=== PATIENT | male | born 1950 | race Two or more races ===

== ENCOUNTER 2019-01-27 12:02 | Inpatient (IN) | payer OTHER, MEDICARE ==
[2019-01-27] MEDS ORDERED: oxyCODONE TAB* 5 MG TAB PO PRN ×2 (12:20→14:04)
[2019-01-27] MEDS ORDERED: Morphine 4 MG/ML VIAL (1 ml) 4 MG/ML VIAL IV PRN (12:20)
[2019-01-27] MEDS ORDERED: Magnesium Hydroxide LIQ* 30 ML UDC PO PRN (12:20)
[2019-01-27] MEDS ORDERED: Docusate CAP* 100 MG PO PRN (12:20)
[2019-01-27] MEDS ORDERED: diPHENhydraMINE PO* 25 MG PO PRN (12:20)
[2019-01-27] MEDS ORDERED: Ondansetron INJ* 2 MG/ML VIAL IV PRN (12:20)
[2019-01-27] MEDS ORDERED: Ondansetron ODT TAB* 4 MG PO PRN (12:20)
[2019-01-27] MEDS ORDERED: diPHENhydraMINE IV* 50 MG/ML 1 ml VIAL (BENADRYL) IV PRN (12:20)
[2019-01-27] MEDS ORDERED: traMADol TAB* 50 MG PO PRN (12:20)
[2019-01-27] MEDS ORDERED: Zosyn per Pharmacy* NOTE FOLLOW UP SCH (13:00)
--- OUTSIDE RECORDS SUMMARY | 2019-01-27 13:30 | XMS REPORT | Continuity of Care Document ---
:1950 External Reference #:[id number] Author Name Celeste Amato Care Team Providers Name Role Phone Arash Hollingsworth MD Primary Care Physician Unavailable Payers Date Identification Numbers Payment Provider Subscriber Policy Number: [id number] [employer] Number: [id number] [address] PayID: [id number] [place] [address] Problems Active Problems Provider Date Cellulitis of right lower limb Fermín Issa MD Onset: 01/27/2019 Acute osteomyelitis of ankle and/or foot Fermín Issa MD Onset: 01/27/2019 Gluteal tendinitis Estefany Kraft M.D. Onset: 02/02/2016 Localized, primary osteoarthritis of the pelvic Estefany Kraft M.D. 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 ETOH Use Occasionally consumes alcohol Tobacco Use Start: Unknown End: Patient is a former quit when he was 34 Unknown smoker yrs old - up to 1 ppd x 16 yrs Smoking Status Reviewed: 01/27/19 Patient is a former quit when he was 34 smoker yrs old - up to 1 ppd x 16 yrs Exercise Exercises regularly Type/Frequency Allergies, Adverse Reactions, Alerts Active Allergies Reaction Severity Comments Date Lisinopril swelling of airways 01/03/2019 Chlorthalidone 01/27/2019 Medications Active Medications SIG Qnty Indications Ordering Provider Date Triamterene/Hydrochloro 1 by mouth every Unknown thiazide day 37.5-25mg Capsules Potassium Chloride Becky 1 by mouth every Unknown ER day 20Meq Tablets ER Atorvastatin Calcium 1 by mouth every Unknown 40mg day Tablets History Medications Amoxicillin/Clavulanate 1 tab by 30tabs L03.115 Snicere Cobos 01/03/2019 - Potassium mouth two Monika Concepcion 01/26/2019 500-125mg Tablets times per day Naproxen 1 tablet 60tabs M70.62 Estefany Kraft 12/22/2015 - 500mg Tablets with food by Monika 01/02/2019 mouth twice a day for two weeks Medications Administered in Office Medication SIG Qnty Indications Ordering Provider Date Depomedrol 40MG Estefany Kraft M.D. 12/22/2015 Injection Vital Signs Date Vital Result Comment 01/27/2019 11:16am Height 75 inches 6'3" Weight 220.00 lb Heart Rate 72 /min BP Systolic 108 mmHg BP Diastolic 70 mmHg Respiratory Rate 16 /min Body Temperature 98.2 F Pain Level 2 BMI (Body Mass Index) 27.5 kg/m2 01/03/2019 11:20am Height 75 inches 6'3" Weight 227.00 lb Heart Rate 72 /min BP Systolic Sitting 148 mmHg BP Diastolic Sitting 86 mmHg Respiratory Rate 14 /min Body Temperature 98.5 F BMI (Body Mass Index) 28.4 kg/m2 02/02/2016 10:18am Height 75 inches 6'3" Weight 222.00 lb Respiratory Rate 16 /min Pain Level 0 BMI (Body Mass Index) 27.7 kg/m2 01/05/2016 11:04am Height 75 inches 6'3" Weight 222.00 lb Pain Level 1 BMI (Body Mass Index) 27.7 kg/m2 12/22/2015 9:47am Height 75 inches 6'3" Weight 222.00 lb Heart Rate 58 /min BP Systolic 122 mmHg BP Diastolic 78 mmHg Pain Level 7 highest is 7 BMI (Body Mass Index) 27.7 kg/m2 Results Test Date Facility Test Result H/L Range Note Laboratory test 01/03/2019 [facility] Tissue Culture SEE RESULT [address] & [address] BELOW [place], [place] [address] [phone] 1 SEE RESULT BELOW Name: RODYFLACO Robert : [address]: Bradley Maxwell MD Acct: [id number] Unit: [id number] AGE: 68 Location: WOUND Re01/03/19 SEX: M Status: REG REF SPEC: [id number] STEVEN: 01/03/[address]: Bradley Maxwell MD REQ: [id number] RECD: 01/03/19 STATUS: TOR HYMAN DR: Arash Hollingsworth MD _ SOURCE: WOUND SPDESC:RIGHT ORDERED: Tissue Cult/GS COMMENTS: RIGHT FOOT WOUND Procedure Result Reported Site Tissue Gram Stain Final 01/03/19- 1450 ML 2+ Epithelial Cells 2+ Neutrophils 2+ Gram Positive Cocci Tissue Culture Final 01/07/19- 0913 ML Organism 1 STAPHYLOCOCCUS AUREUS Quantity 3+ Organism 2 PROTEUS VULGARIS Quantity 2+ Organism 3 PEPTOSTREPTOCOCCUS ANAEROBIUS Quantity 2+ Organism 4 ENTEROCOCCUS FAECALIS Quantity 1+ Anaerobic sensitivities are not routinely performed. Positive isolates will be saved for one week. Please call the Microbiology Laboratory if susceptibility testing is needed. E. FAECALIS: Organism nonviable for further testing. 1. STAPHYLOCOCCUS AUREUS M.I.C. RX --------- ------ Penicillin >=0.5 R Clindamycin <=0.25 S Erythromycin >=8 R Gentamicin <=0.5 S CONTINUED ON NEXT PAGE DEPARTMENT OF PATHOLOGY, [address] [place] [address] Addison Lennon M.D. Director [facility] # [id number] Patient: FLACO FINE [id number] (Continued) Specimen: [id number] Collected: 01/03/19 Received: 01/03/19 (Continued) Procedure Result Reported Site Tissue Culture Final (continued) 01/07/19912 1. STAPHYLOCOCCUS AUREUS (continued) M.I.C. RX --------- ------ Linezolid 2 S Oxacillin 0.5 S * Quinupristin/Dalfopristin 0.5 S Rifampin <=0.5 S Tetracycline >=16 R Trimethoprim/Sulfamethoxazole <=10 S Vancomycin 1 S Imipenem-Deduced S * Ampicillin/Sulbactam-Deduced S Cefazolin-Deduced S 2. PROTEUS VULGARIS M.I.C. RX --------- ------ Ampicillin >=32 R Cefazolin >=64 R Cefepime <=1 S Ceftriaxone <=1 S Ciprofloxacin <=0.25 S Gentamicin <=1 S Levofloxacin <=0.12 S Meropenem <=0.25 S Tetracycline R Pipercillin/Tazobactam <=4 S Trimethoprim/Sulfamethoxazole <=20 S Amoxicillin/Clavulanic Acid 8 S Aztreonam <=1 S * These antibiotics are not available in the [facility] Formulary Contact the Microbiology Department for any additional antibiotic reporting. CONTINUED ON NEXT PAGE DEPARTMENT OF PATHOLOGY, [address] [place] [address] Addison Lennon M.D. Director [facility] # [id number] Patient: FLACO FINE [id number] (Continued) Specimen: [id number] Collected: 01/03/19 Received: 01/03/19-1324 (Continued) Procedure Result Reported Site Tissue Culture Final (continued) Contact the Microbiology Department for any additional antibiotic reporting. * [facility] . END OF REPORT DEPARTMENT OF PATHOLOGY, [address] [place] [address] Addison Lennon M.D. 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 M.D. hip M16.12 Unilateral primary osteoarthritis, left hip M76.02 Gluteal tendinitis, left hip Office Visit 01/05/2016 11:00a Orthopedic Services Estefany Kraft, M25.552 Pain in left Of C.M.A. M.D. hip M16.12 Unilateral primary osteoarthritis, left hip M70.62 Trochanteric bursitis, left hip Office Visit 12/22/2015 9:30a Orthopedic Estefany Karft, M70.62 Trochanteric Services Of M.D. bursitis, left hip C.M.A. M25.552 Pain in left hip M16.12 Unilateral primary osteoarthritis, left hip Plan of Treatment 01/27/2019 - Fermín Issa MDL03.115 Cellulitis of right lower limbM86.171 Other acute osteomyelitis, right ankle and footFollow up:Follow Up: being admitted to hospital
--- OUTSIDE RECORDS SUMMARY | 2019-01-27 13:30 | XMS REPORT | Continuity of Care Document ---
:1950 External Reference #:[id number] Author Name Kira Whitaker Care Team Providers Name Role Phone Arash Hollingsworth MD Primary Care Physician Unavailable Payers Date Identification Numbers Payment Provider Subscriber Policy Number: [id number] [employer] Number: [id number] [address] PayID: [id number] [place] [address] Problems Active Problems Provider Date Gluteal tendinitis Estefany Kraft M.D. Onset: 02/02/2016 Localized, primary osteoarthritis of the pelvic Estefany Kraft M.D. 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 01/03/2019 e Potassium two times per Monika Concepcion 500-125mg day Tablets Triamterene/Hydrochlor 1 by mouth Unknown othiazide every day 37.5-25mg Capsules Potassium Chloride 1 by mouth Unknown Becky ER every day 20Meq Tablets ER Atorvastatin Calcium 1 by mouth Unknown 40mg every day Tablets History Medications Naproxen 1 tablet with 60tabs M70.62 Estefany Kraft, 12/22/2015 - 500mg food by mouth M.DLatrice 01/02/2019 Tablets twice a day for two weeks Medications Administered in Office Medication SIG Qnty Indications Ordering Provider Date Depomedrol 40MG Estefany Kraft M.D. 12/22/2015 Injection Vital Signs Date Vital Result Comment 01/03/2019 11:20am Height 75 inches 6'3" Weight [...] Result H/L Range Note Laboratory test 01/03/2019 [facility] Tissue Culture SEE RESULT [address] [place] [address] [phone] 1 SEE RESULT BELOW Name: JUANITA FINE : [address]: Bradley Maxwell MD Acct: [id number] Unit: [id number] AGE: 68 Location: WOUND Re01/03/19 SEX: M Status: REG REF SPEC: [id number] STEVEN: 01/03/19-[address] [facility] [address]: Bradley Maxwell MD REQ: [id number] RECD: 01/03/19 STATUS: RES [facility] DR: Arash Hollingsworth MD _ SOURCE: WOUND SPDESC:RIGHT ORDERED: Tissue Cult/GS COMMENTS: RIGHT FOOT WOUND Procedure Result Reported Site Tissue Gram Stain Final 01/03/19- 1450 ML 2+ Epithelial Cells 2+ Neutrophils 2+ Gram Positive Cocci Tissue Culture Preliminary 01/05/19- 1117 ML Organism 1 STAPHYLOCOCCUS AUREUS Quantity 3+ Organism 2 PROTEUS VULGARIS Quantity 2+ 1. STAPHYLOCOCCUS AUREUS M.I.C. RX --------- ------ Penicillin >=0.5 R Clindamycin <=0.25 S Erythromycin >=8 R Gentamicin <=0.5 S Linezolid 2 S Oxacillin 0.5 S * Quinupristin/Dalfopristin 0.5 S Rifampin <=0.5 S Tetracycline >=16 R Trimethoprim/Sulfamethoxazole <=10 S Vancomycin 1 S Imipenem-Deduced S * Ampicillin/Sulbactam-Deduced S Cefazolin-Deduced S CONTINUED ON NEXT PAGE DEPARTMENT OF PATHOLOGY, [address] [place] [address] Addison Lennon M.D. Director [facility] # [id number] Patient: JUANITA FINE [id number] (Continued) Specimen: [id number] Collected: 01/03/19 Received: 01/03/19-1324 (Continued) Procedure Result Reported Site Tissue Culture Preliminary (continued) 01/05/19- 1117 2. PROTEUS VULGARIS M.I.C. RX --------- ------ Ampicillin >=32 R Cefazolin >=64 R Cefepime <=1 S Ceftriaxone <=1 S Ciprofloxacin <=0.25 S Gentamicin <=1 S Levofloxacin <=0.12 S Meropenem <=0.25 S Tetracycline R Pipercillin/Tazobactam <=4 S Trimethoprim/Sulfamethoxazole <=20 S Amoxicillin/Clavulanic Acid 8 S Aztreonam <=1 S * These antibiotics are not available in the [facility] Formulary Contact the Microbiology Department for any additional antibiotic reporting. Contact the Microbiology Department for any additional antibiotic reporting. * [facility] - Main Lab . END OF REPORT DEPARTMENT OF PATHOLOGY, [address] [place] [address] Addison Lennon M.D. Director [facility] # [id number] Procedures Date Code Description Status 01/03/2019 80860 Debridement Skin,& sq Tissue Completed 12/22/2015 77802 Inject/Drain Joint/Bursa Major W/O US Completed Encounters Type Date Location Provider Dx Diagnosis Office Visit 02/02/2016 Orthopedic Estefany Kraft, M25.552 Pain in left hip 10:00a Services Of Molly Frank M16.12 Unilateral primary osteoarthritis, left hip M76.02 Gluteal tendinitis, left hip Office Visit 01/05/2016 11:00a Orthopedic Services Estefany Swapnil, M25.552 Pain in left Of C.M.A. Monika hip M16.12 Unilateral primary osteoarthritis, left hip M70.62 Trochanteric bursitis, left hip Office Visit 12/22/2015 9:30a Orthopedic Estefany Kraft, M70.62 Trochanteric Services Of Monika bursitis, left hip C.M.A. 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
[2019-01-27] MEDS ORDERED: ZOSYN 3.375 GM x ONE DOSE over 30 miuntes IVPB ×2 (14:00)
[2019-01-27 14:31] LABS: ABS Eosinophils 0.3 10^3/ul (0-0.6); ABS Monocytes 0.6 10^3/ul (0-0.8); ABS Neutrophils 5.5 10^3/ul (1.5-7.7); Eosinophil % 3.6 %; Hematocrit 41 % (42-52); Hemoglobin 13.7 g/dL (14.0-18.0); Lymphocyte % 13.2 %; Mean Corpuscular HGB Conc 34 g/dL (31-36); Mean Corpuscular Hemoglobin 28 pg (27-31); Mean Corpuscular Volume 84 fL (80-94); Mean Platelet Volume 6.4 fL (7.4-10.4); Platelet Count 216 10^3/uL (150-450); Red Blood Count 4.84 10^6 /uL (4.18-5.48); Red Cell Distribution Width 14 % (10-15); White Blood Count 7.4 10^3/uL (3.5-10.8)
[2019-01-27 14:37] LABS: INR 1.04 (0.82-1.09)
[2019-01-27 14:43] LABS: BUN/Creatinine Ratio 15.1 (8-20); Calcium 9.3 mg/dL (8.6-10.3); EGFR African American 97.5 (>60); EGFR Non-African American 80.6 (>60); Potassium 3.9 mmol/L (3.5-5.0)
[2019-01-27] MEDS: Heparin VIAL(*) 5000 UNITS/ML VIAL (FIVE THOUSAND) SUBCUT SCH ×2 (15:10→22:41)
[2019-01-27 17:55] LABS: C Reactive Protein 29.64 mg/L (<8.01)
--- NOTE | 2019-01-27 18:51 | CONS ---
CONSULTATION REPORT: DATE OF CONSULT: 01/27/19 PRIMARY CARE PROVIDER: Dr. Arash Hollingsworth. PROVIDER REQUESTING CONSULTATION: JORGE LUIS Linn CONSULTING SERVICE: Infectious Disease. PROVIDER OF CARE: Brendon Saucedo NP ATTENDING PHYSICIAN: Dr. Sincere Chapa.* (DICTATED BY BRENDON SAUCEDO NP) REASON FOR CONSULT: Right second toe infection. IMPRESSION: 1. Right second toe osteomyelitis. The patient has had a wound to the plantar aspect of his right foot over the second metatarsal for approximately 3-1/2 months. In the past, this wound was cultured back on 01/03/19, at which time the wound grew Staph aureus, Proteus vulgaris, Peptostreptococcus anaerobius, and Enterococcus faecalis. He underwent an MRI of the right foot showing right second toe cellulitis and osteomyelitis. He had a CRP last on 12/23/18 that was 47.87. Orthopedics plans to take the patient to surgery on 01/30/19. 2. Hypertension. PLAN/RECOMMENDATIONS: Recommend starting Zosyn. At this time, the wound does not have any drainage, but if it develops drainage in an area that is able to have a wound culture, we could obtain a would culture to better guide our antibiotic management. I recommend adding a CRP to today's labs. We will continue to follow along with the patient. Further recommendations will be based off of findings during the patient's surgery and his clinical course. HISTORY OF PRESENT ILLNESS: Mr. Warren is a 68-year-old male with past medical history significant for sleep apnea, hypertension, and umbilical hernia, who approximately 3-1/2 months ago developed a blister on the plantar aspect of his right foot near the second metatarsals. His foot was x-rayed by his primary care provider and he was found to have a second and third toe dislocation with no fracture or foreign body. He was started on Keflex. When his foot did not improve, he was transitioned to Augmentin with some minimal improvement. He was then referred to Infectious Disease for consultation. On 01/14/19, he had an MRI of his right foot showing second MTP dislocation, superficial and deep cellulitis with extensive superficial and deep soft tissue edema, some enhancement about the forefoot consistent with cellulitis most marked surrounding the second toe where there were three less than 1 mL volume microabscesses identified. He was also found to have osteomyelitis involving the distal metaphysis of the head of the second metatarsal and throughout the proximal phalanx with associated bone marrow edema and enhancement consistent with osteomyelitis. Severe hallux valgus deformity and polyarthritic osteoarthritis. He states he completed a 10- day course of Augmentin approximately 1 week ago. He states that then this weekend the foot flared back up with right ankle edema, redness in his right second toe, with swelling of the right second toe. He states that for approximately 1 month he has had intermittent right ankle and foot edema. He was seen by Dr. Issa in the office today and was referred directly to the hospital for a right foot osteomyelitis. The patient denies any fevers, chills, joint pain, muscle pain, rash, diarrhea, constipation, urinary symptoms, recent travel. PAST MEDICAL HISTORY: 1. Sleep apnea. 2. Hypertension. 3. Umbilical hernia. PAST SURGICAL HISTORY: 1. Status post cholecystectomy. 2. Status post repair of deviated septum. 3. Status post tonsillectomy. 4. Status post removal of a lump from his left leg as a child. MEDICATIONS: Home medications include: 1. Potassium chloride 20 mEq by mouth twice daily. 2. Dyazide 25/37.5 mg 1 tablet by mouth daily. 3. Claritin 10 mg by mouth daily. 4. Atorvastatin 40 mg by mouth daily. Hospital medications: 1. Acetaminophen 975 mg by mouth every 8 hours as needed for fever or pain. 2. Atorvastatin 40 mg by mouth daily. 3. Cetirizine 10 mg by mouth daily. 4. Benadryl 25 mg IV or p.o. every 6 hours as needed for itching. 5. Colace 100 mg by mouth twice daily as needed for constipation. 6. Heparin sodium 5000 units subcutaneous every 8 hours. 7. Milk of magnesia 30 mL by mouth twice daily as needed for constipation. 8. Morphine sulfate 2 mg IV every 4 hours as needed for pain. 9. Zofran 4 mg by mouth or IV every 6 hours as needed for nausea. 10. Oxycodone 5 to 10 mg by mouth every 4 hours as needed for pain. 11. Zosyn 3.375 g IV q.8 hours. 12. Potassium chloride 20 mEq by mouth twice daily. 13. Tramadol 50 mg by mouth every 6 hours as needed for pebr-cn-aeaijgpu pain. 14. Dyazide 1 capsule by mouth daily. ALLERGIES: 1. CHLORTHALIDONE. 2. LISINOPRIL. FAMILY HISTORY: Denies family history of recurrent or resistant infections or tuberculosis. Denies family history of coronary artery disease or diabetes. Mother with a history of bone marrow cancer. Father with a history of blood clots. SOCIAL HISTORY: He drinks wine daily with dinner. He is a former smoker. He quit smoking 30 years ago. Prior to that, he had a 20-year 2-mxpb-y-day smoking history. He denies recreational drug use. REVIEW OF SYSTEMS: I performed a 10-point review of systems. All the pertinent positives and negatives are mentioned in the history of present illness. The remaining review of systems are negative. PHYSICAL EXAM: Vital Signs: Temperature 98.9, heart rate 63, respiratory rate 16, O2 sat 93% on room air, blood pressure 145/82. General Appearance: Alert, pleasant, appears to be in no acute distress. Head: Normocephalic, atraumatic. EENT: Pupils are equal and reactive to light. Extraocular movements are intact. Mucous membranes are moist. Neck: Supple. No lymphadenopathy. Neurological: Alert and oriented x4. Cranial nerves II through XII are grossly intact. Cardiovascular: Regular rate and rhythm. S1 and S2 are crisp. No murmurs, rubs, or gallops heard. Respiratory: No accessory muscle use. The lungs are clear to auscultation bilaterally. Abdomen : Bowel sounds present. Abdomen is soft, nontender, nondistended. Extremities : There is mild right foot and ankle edema. DP and PT pulses are 2+ and symmetric. Musculoskeletal: No clubbing or cyanosis noted. The patient exhibits good strength in all extremities. Psychological: Calm and cooperative. Skin: There is erythema to the right forefoot, significant swelling to the right second toe with macerated skin surrounding the toe, especially at the base of the toe. Additionally, there is an ulcer to the plantar aspect of the right foot with what appears to be surrounding callus overlying the second metatarsal. DIAGNOSTIC STUDIES/LAB DATA: Sodium 142, potassium 3.9, chloride 105, CO2 of 31 , BUN 14, creatinine 0.93, glucose 102. White blood cell count 7.4, hemoglobin 13.7, hematocrit 41, platelet count 216. Please see impression and recommendations outlined above. Thank you for asking us to see Mr. Warren in consultation. The case has been reviewed with my attending, Dr. Sincere Chapa, who agrees with the plan of care. Reviewed by BRENDON SAUCEDO, PATRICE-Nehemiah 01/28/19 0821 [id number]/[facility] #: [id number] MTDD
[2019-01-27] MEDS: ZOSYN 3.375 GM Q8H per EXTENDED INFUSION IVPB SCH ×2 (20:08)
[2019-01-27] MEDS: Potassium Chlor TAB* 20 MEQ TAB.ER PO SCH (20:12)
[2019-01-28] MEDS: ZOSYN 3.375 GM Q8H per EXTENDED INFUSION IVPB SCH ×6 (03:51→20:09)
[2019-01-28] MEDS: Heparin VIAL(*) 5000 UNITS/ML VIAL (FIVE THOUSAND) SUBCUT SCH ×3 (05:55→21:45)
[2019-01-28] MEDS: Potassium Chlor TAB* 20 MEQ TAB.ER PO SCH ×2 (09:23→20:11)
[2019-01-28] MEDS: Triamterene/HCTZ 37.5-25 MG* CAP PO SCH (09:24)
[2019-01-28] MEDS: Atorvastatin* 40 MG TAB PO SCH (09:24)
[2019-01-28] MEDS: Cetirizine* 10 MG TAB PO SCH (09:24)
--- NOTE | 2019-01-28 10:22 | PN ---
Progress Note - Progress Note Date of Service: 01/28/19 SOAP: Subjective: []Saw and examined Flaco at bedside today. His right foot remains nonpainful, promotes that it has never been painful. Denies feeling of fever, chills, CP, SOB, dizziness or nausea. Has tongue swelling on the right side. Denies difficulty swallowing, difficulty breathing, rash or itching. Objective: []General: Appears well, NAD Right side of tongue is swollen, no other airway swelling observed. No rash of abdomen or extremities. RLE: Dressing removed, foul odor. Right forefoot erythematous and edematous, nontender. 2nd Toe also nontender, very erythematous and edematous, macerated skin worst at the base and in the web spaces, no purulence, cap refill less than two seconds distally. 1cm plantar ulcer over the 2nd metatarsal without expressible drainage. DP2+, sensation is decreased from midfoot distally. Assessment: []R foot infection Plan: []Heel WB Heparin 5000 u subq q8hr Benadryl for tongue swelling, Patient knows to report any worsening or new sx. Zosyn, will culture wound if any drainage. Plan for OR Vital Signs Temp 98.9 F 01/28/19 07:37 Pulse 59 01/28/19 07:37 Resp 16 01/28/19 09:23 BP 140/75 01/28/19 07:37 Pulse Ox 94 01/28/19 07:37 Intake & Output 01/27/19 01/28/19 01/28/19 18:59 06:59 18:59 Intake Total 755 360 Output Total 50 575 275 Balance -50 180 85 Weight 220 lb Intake: IV Fluids 255 ABX - PIPERACILLIN 205 NS (0.9%) 50 Oral 500 360 Output: Urine 50 575 275 Other: # Bowel Movements 0 Laboratory Last Values WBC 7.4 10^3/uL (3.5-10.8) 01/27/19 14:15 RBC 4.84 10^6 /uL (4.18-5.48) 01/27/19 14:15 Hgb 13.7 g/dL (14.0-18.0) L 01/27/19 14:15 Hct 41 % (42-52) L 01/27/19 14:15 MCV 84 fL (80-94) 01/27/19 14:15 MCH 28 pg (27-31) 01/27/19 14:15 MCHC 34 g/dL (31-36) 01/27/19 14:15 RDW 14 % (10-15) 01/27/19 14:15 Plt Count 216 10^3/uL (150-450) 01/27/19 14:15 MPV 6.4 fL (7.4-10.4) L 01/27/19 14:15 Neut % (Auto) 74.2 % 01/27/19 14:15 Lymph % (Auto) 13.2 % 01/27/19 14:15 Canadian % (Auto) 8.4 % 01/27/19 14:15 Eos % (Auto) 3.6 % 01/27/19 14:15 Baso % (Auto) 0.6 % 01/27/19 14:15 Absolute Neuts (auto) 5.5 10^3/ul (1.5-7.7) 01/27/19 14:15 Absolute Lymphs (auto) 1.0 10^3/ul (1.0-4.8) 01/27/19 14:15 Absolute Monos (auto) 0.6 10^3/ul (0-0.8) 01/27/19 14:15 Absolute Eos (auto) 0.3 10^3/ul (0-0.6) 01/27/19 14:15 Absolute Basos (auto) 0.0 10^3/ul (0-0.2) 01/27/19 14:15 Absolute Nucleated RBC 0.0 10^3/ul 01/27/19 14:15 Nucleated RBC % 0.0 01/27/19 14:15 INR (Anticoag Therapy) 1.04 (0.82-1.09) 01/27/19 14:15 Sodium 142 mmol/L (135-145) 01/27/19 14:15 Potassium 3.9 mmol/L (3.5-5.0) 01/27/19 14:15 Chloride 105 mmol/L (101-111) 01/27/19 14:15 Carbon Dioxide 31 mmol/L (22-32) 01/27/19 14:15 Anion Gap 6 mmol/L (2-11) 01/27/19 14:15 BUN 14 mg/dL (6-24) 01/27/19 14:15 Creatinine 0.93 mg/dL (0.67-1.17) 01/27/19 14:15 Est GFR ( Amer) 97.5 (>60) 01/27/19 14:15 Est GFR (Non-Af Amer) 80.6 (>60) 01/27/19 14:15 BUN/Creatinine Ratio 15.1 (8-20) 01/27/19 14:15 Glucose 102 mg/dL (70-100) H 01/27/19 14:15 Calcium 9.3 mg/dL (8.6-10.3) 01/27/19 14:15 C-Reactive Protein 29.64 mg/L (<8.01) H 01/27/19 14:15
--- NOTE | 2019-01-28 16:19 | CONSULT ---
Consult Consult: Date of service: 01/28/2019 Reason for consultation: Nonhealing right plantar foot wound and the patient with noncompressible infrapopliteal arteries. Consulting service: Foot and ankle surgery (Shakira KANG) (Focused) HPI: Mr. Warren is a 68-year-old male who approximately 3-1/2 months ago developed a blister on the plantar aspect of his right foot near the second metatarsals. His foot was x-rayed by his primary care provider and he was found to have a second and third toe dislocation with no fracture or foreign body. He was started on Keflex. When his foot did not improve, he was transitioned to Augmentin with some minimal improvement. He was then referred to Infectious Disease for consultation. On 01/14/19, he had an MRI of his right foot showing second MTP dislocation, superficial and deep cellulitis with extensive superficial and deep soft tissue edema, some enhancement about the forefoot consistent with cellulitis most marked surrounding the second toe where there were three less than 1 mL volume microabscesses identified. He was also found to have osteomyelitis involving the distal metaphysis of the head of the second metatarsal and throughout the proximal phalanx with associated bone marrow edema and enhancement consistent with osteomyelitis. He completed a 10- day course of Augmentin approximately 1 week ago. This weekend the foot flared back up with right ankle edema, redness in his right second toe, with swelling of the right second toe. For approximately 1 month he has had intermittent right ankle and foot edema. He was seen by Dr. Issa in the office today and was referred directly to the hospital for a right foot osteomyelitis. The patient denies any fevers, chills, joint pain, muscle pain, rash, diarrhea, constipation, urinary symptoms, recent travel. Prior to this infection he denies any symptoms characteristic of claudication or rest pain. He has never had a prolonged non-healing wound like this before either. PAST MEDICAL HISTORY: 1. Sleep apnea. 2. Hypertension. 3. Umbilical hernia. PAST SURGICAL HISTORY: 1. Status post cholecystectomy. 2. Status post repair of deviated septum. 3. Status post tonsillectomy. 4. Status post removal of a lump from his left leg as a child Hospital medications: 1. Acetaminophen 975 mg by mouth every 8 hours as needed for fever or pain. 2. Atorvastatin 40 mg by mouth daily. 3. Cetirizine 10 mg by mouth daily. 4. Benadryl 25 mg IV or p.o. every 6 hours as needed for itching. 5. Colace 100 mg by mouth twice daily as needed for constipation. 6. Heparin sodium 5000 units subcutaneous every 8 hours. 7. Milk of magnesia 30 mL by mouth twice daily as needed for constipation. 8. Morphine sulfate 2 mg IV every 4 hours as needed for pain. 9. Zofran 4 mg by mouth or IV every 6 hours as needed for nausea. 10. Oxycodone 5 to 10 mg by mouth every 4 hours as needed for pain. 11. Zosyn 3.375 g IV q.8 hours. 12. Potassium chloride 20 mEq by mouth twice daily. 13. Tramadol 50 mg by mouth every 6 hours as needed for efgx-rh-yhaeauwe pain. 14. Dyazide 1 capsule by mouth daily. ALLERGIES: 1. CHLORTHALIDONE. 2. LISINOPRIL. FAMILY HISTORY: Denies family history of recurrent or resistant infections or tuberculosis. Denies family history of coronary artery disease or diabetes. Mother with a history of bone marrow cancer. Father with a history of blood clots requiring lifetime Coumadin therapy and varicose veins. SOCIAL HISTORY: He drinks wine daily with dinner. He is a former smoker. He quit smoking 30 years ago. Prior to that, he had a 20-year 2-jovh-p-day smoking history. He denies recreational drug use. REVIEW OF SYSTEMS: I performed a 10-point review of systems. All the pertinent positives and negatives are mentioned in the history of present illness. The remaining review of systems are negative. 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 Moderate right lower extremity arterial disease based on JALEESA. 2. Normal left lower extremity JALEESA. RELEVANT LABS: Laboratory Tests 01/27/19 01/27/19 01/27/19 14:15 14:15 14:15 WBC 7.4 RBC 4.84 Hgb 13.7 L Hct 41 L INR (Anticoag Therapy) 1.04 BUN 14 Creatinine 0.93 Est GFR ( Amer) 97.5 Est GFR (Non-Af Amer) 80.6 Summary: 68-year-old man with a chronic right forefoot wound and osteomyelitis with evidence of arterial insufficiency on recent JALEESA as indicated by the below normal right digit JALEESA of 0.66. On physical examination however he has readily palpable pedal pulses and conveys no history of arerial insufficiency. It seems unlikely angiography with potential revascularization is indicicted. Recommendation: 1.RLE arterial patency will be objectively confirmed with arterial duplex sonography. 2. Continue abx therapy and surgical care per foot & ankle surgery.
[2019-01-28] MEDS: Acetaminophen TAB* 325 MG PO PRN (20:18)
[2019-01-29] MEDS: ZOSYN 3.375 GM Q8H per EXTENDED INFUSION IVPB SCH ×6 (04:01→20:17)
[2019-01-29] MEDS: Heparin VIAL(*) 5000 UNITS/ML VIAL (FIVE THOUSAND) SUBCUT SCH ×3 (05:31→22:18)
[2019-01-29] MEDS: Potassium Chlor TAB* 20 MEQ TAB.ER PO SCH ×2 (08:42→20:17)
[2019-01-29] MEDS: Atorvastatin* 40 MG TAB PO SCH (08:42)
[2019-01-29] MEDS: Cetirizine* 10 MG TAB PO SCH (08:43)
[2019-01-29] MEDS: Triamterene/HCTZ 37.5-25 MG* CAP PO SCH (08:43)
--- NOTE | 2019-01-29 10:15 | PN ---
Progress Note - Progress Note Date of Service: 01/29/19 SOAP: Subjective: CC: Right foot infection HPI: Mr. Warren is a 68 yo male with PMH significant for sleep apnea, HTN and umbilical hernia. Presented to the hospital for right 2nd toe osteomyelitis. Denies fever, chills, nausea, vomiting, and diarrhea. Denies pain in the right foot. Reports right sided tongue swelling yesterday, that resolved with Benadryl , states this has been happening at home for the past few months is taking OTC allergy medication for it and is unsure of the cause. Objective: Vital Signs - 8 hr 01/29/19 01/29/19 03:24 07:21 Temperature 97.9 F 98.1 F Pulse Rate 53 55 Respiratory 16 12 Rate Blood Pressure 115/62 133/84 (mmHg) O2 Sat by Pulse 93 95 Oximetry Physical Exam: General: NAD, sitting up in bed Neurological: Alert and Oriented x4 HEENT: Moist MM, no thrush Cardiovascular: Heart rate regular, no murmur Respiratory: Lung sounds clear Abdominal: Bowel sounds present; ABD soft, non tender and non distended Skin: No rash. Right 2nd toe continues to have significant swelling and a mild foul smell. There is no erythema present. Laboratory Last Values WBC 7.4 10^3/uL (3.5-10.8) 01/27/19 14:15 RBC 4.84 10^6 /uL (4.18-5.48) 01/27/19 14:15 Hgb 13.7 g/dL (14.0-18.0) L 01/27/19 14:15 Hct 41 % (42-52) L 01/27/19 14:15 MCV 84 fL (80-94) 01/27/19 14:15 MCH 28 pg (27-31) 01/27/19 14:15 MCHC 34 g/dL (31-36) 01/27/19 14:15 RDW 14 % (10-15) 01/27/19 14:15 Plt Count 216 10^3/uL (150-450) 01/27/19 14:15 MPV 6.4 fL (7.4-10.4) L 01/27/19 14:15 Neut % (Auto) 74.2 % 01/27/19 14:15 Lymph % (Auto) 13.2 % 01/27/19 14:15 Mcdowell % (Auto) 8.4 % 01/27/19 14:15 Eos % (Auto) 3.6 % 01/27/19 14:15 Baso % (Auto) 0.6 % 01/27/19 14:15 Absolute Neuts (auto) 5.5 10^3/ul (1.5-7.7) 01/27/19 14:15 Absolute Lymphs (auto) 1.0 10^3/ul (1.0-4.8) 01/27/19 14:15 Absolute Monos (auto) 0.6 10^3/ul (0-0.8) 01/27/19 14:15 Absolute Eos (auto) 0.3 10^3/ul (0-0.6) 01/27/19 14:15 Absolute Basos (auto) 0.0 10^3/ul (0-0.2) 01/27/19 14:15 Absolute Nucleated RBC 0.0 10^3/ul 01/27/19 14:15 Nucleated RBC % 0.0 01/27/19 14:15 INR (Anticoag Therapy) 1.04 (0.82-1.09) 01/27/19 14:15 Sodium 142 mmol/L (135-145) 01/27/19 14:15 Potassium 3.9 mmol/L (3.5-5.0) 01/27/19 14:15 Chloride 105 mmol/L (101-111) 01/27/19 14:15 Carbon Dioxide 31 mmol/L (22-32) 01/27/19 14:15 Anion Gap 6 mmol/L (2-11) 01/27/19 14:15 BUN 14 mg/dL (6-24) 01/27/19 14:15 Creatinine 0.93 mg/dL (0.67-1.17) 01/27/19 14:15 Est GFR ( Amer) 97.5 (>60) 01/27/19 14:15 Est GFR (Non-Af Amer) 80.6 (>60) 01/27/19 14:15 BUN/Creatinine Ratio 15.1 (8-20) 01/27/19 14:15 Glucose 102 mg/dL (70-100) H 01/27/19 14:15 Calcium 9.3 mg/dL (8.6-10.3) 01/27/19 14:15 C-Reactive Protein 29.64 mg/L (<8.01) H 01/27/19 14:15 Assessment: 1. Right second toe chronic osteomyelitis. Plan for surgery tomorrow for an amputation. Afebile and no leukocytosis on labs checked at time of admission. CRP was elevated at admission, 29.64. Plan: Continue zosyn. Further recommendations based on the findings and clinical course after surgery.
--- NOTE | 2019-01-29 10:43 | PN ---
Progress Note - Progress Note Date of Service: 01/29/19 SOAP: Subjective: []Patient was seen and examined at bedside today. Denies right foot pain, fever , chills, CP, SOB, dizziness or nausea. No complaints today, tongue swelling has resolved. Reports this same tongue swelling has occurred 4x in the past 6 weeks and his PCP is aware, he has tried an OTC allergy medication which has not seemed to help. Vascular consult completed yesterday, unlikely that this patient requires revascularization though arterial duplex sonography ordered to confirm patency of vessels. Patient reports no history of complications with anesthesia, no history of MS or chest pain, no history of stroke or TIA, no history of CHF, no history of blood clot, not on insulin, and preop creatinine is less than 2. Objective: []General: Appears well, NAD No lip, tongue or throat swelling observed. RLE: Dressing changed, foul odor. No longer erythematous, edema has reduced of the forefoot though 2nd toe remains very edematous. 2nd toe macerated skin remains though has dried compared to yesterday, no purulence. 1cm plantar ulcer over the 2nd metatarsal without expressible drainage. Sensation is decreased from midfoot distally, there is no pain with palpation. Cap refill less than two seconds distally including distal 2nd toe, DP2+. Assessment: []R foot infection Plan: []Heel WB Keep gauze between 1st and 2nd web spaces, over any wounds and wrap with kerlix and hadley. Heparin 5000 u subq q8hr until midnight then hold for OR tomorrow. SCDs Benadryl PRN should any tongue swelling occur. F/U with PCP outpatient to continue this workup Continue Zosyn, will culture wound if any drainage. Plan for OR . NPO and hold heparin at midnight Vital Signs Temp 98.1 F 01/29/19 07:21 Pulse 55 01/29/19 07:21 Resp 12 01/29/19 07:21 BP 133/84 01/29/19 07:21 Pulse Ox 95 01/29/19 07:21 Intake & Output 01/28/19 01/29/19 01/29/19 18:59 06:59 18:59 Intake Total 720 994 Output Total 275 1050 Balance 445 -56 Intake: IV Fluids 244 ABX - PIPERACILLIN 209 NS (0.9%) 35 Oral 720 750 Output: Urine 275 1050 Other: Estimated Void Medium # Bowel Movements 0 # Voids 2 1
[2019-01-29] MEDS ORDERED: traMADol TAB* 50 MG PO PRN (12:36)
[2019-01-30] MEDS: ZOSYN 3.375 GM Q8H per EXTENDED INFUSION IVPB SCH ×2 (04:12)
[2019-01-30] MEDS: ZOSYN 3.375 GM Q6H IVPB SCH ×6 (04:13→16:49)
[2019-01-30 05:54] LABS: ABS Eosinophils 0.3 10^3/ul (0-0.6); ABS Lymphocytes 1.1 10^3/ul (1.0-4.8); ABS Monocytes 0.4 10^3/ul (0-0.8); ABS Neutrophils 4.4 10^3/ul (1.5-7.7); Eosinophil % 4.2 %; Hematocrit 43 % (42-52); Hemoglobin 14.8 g/dL (14.0-18.0); Lymphocyte % 17.5 %; Mean Corpuscular HGB Conc 34 g/dL (31-36); Mean Corpuscular Hemoglobin 29 pg (27-31); Mean Corpuscular Volume 84 fL (80-94); Mean Platelet Volume 6.2 fL (7.4-10.4); Platelet Count 223 10^3/uL (150-450); Red Blood Count 5.15 10^6 /uL (4.18-5.48); Red Cell Distribution Width 14 % (10-15); White Blood Count 6.2 10^3/uL (3.5-10.8)
[2019-01-30 05:59] LABS: INR 1.03 (0.82-1.09)
[2019-01-30] MEDS ORDERED: Buffered Lidocaine 1% SYRIN* 1 ML/SYRINGE INTRADERM ONE (06:00)
[2019-01-30] MEDS: Lactated Ringers 1000 ML Bag* 1,000 ML IV SCH ×2 (06:01→15:29)
[2019-01-30 06:04] LABS: Calcium 9.5 mg/dL (8.6-10.3); Potassium 3.6 mmol/L (3.5-5.0)
[2019-01-30 06:09] LABS: BUN/Creatinine Ratio 14.9 (8-20); EGFR African American 88.6 (>60); EGFR Non-African American 73.2 (>60)
[2019-01-30] MEDS: Cetirizine* 10 MG TAB PO SCH (08:27)
[2019-01-30] MEDS: Triamterene/HCTZ 37.5-25 MG* CAP PO SCH (08:27)
[2019-01-30] MEDS: Atorvastatin* 40 MG TAB PO SCH (08:27)
[2019-01-30] MEDS: Potassium Chlor TAB* 20 MEQ TAB.ER PO SCH ×2 (08:28→20:21)
[2019-01-30] MEDS ORDERED: Midazolam* 1 MG/ML 2 ML VIAL (2 MG) ONE (11:54)
[2019-01-30] MEDS ORDERED: fentaNYL* 50 MCG/ML 2 ML VIAL (100 MCG VIAL) ONE (11:54)
[2019-01-30] MEDS ORDERED: Naloxone* 0.4 MG/ML 1 ML VIAL IV PRN (13:13)
[2019-01-30] MEDS ORDERED: fentaNYL* 50 MCG/ML 2 ML VIAL (100 MCG VIAL) IV PRN (13:13)
[2019-01-30] MEDS ORDERED: Ketorolac INJ* 30 MG/ML 1 ML VIAL IV PRN (13:13)
[2019-01-30] MEDS ORDERED: Propofol* 10 MG/ML 20 ML BTL ONE (13:27)
[2019-01-30] MEDS ORDERED: Lidocaine 2% PF * 5 ML VIAL ONE (13:27)
[2019-01-30] MEDS ORDERED: Metoclopramide IV* 5 MG/ML 2 ML VIAL ONE (13:28)
[2019-01-30] MEDS ORDERED: Ondansetron INJ* 2 MG/ML VIAL ONE (14:05)
--- NOTE | 2019-01-30 15:10 | OP ---
Operative Report - Blank - Operative Report Date of Operation: 01/30/19 Note: PATIENT: Flaco Warren DATE OF : 1950 DATE OF SURGERY: 01/30/2019 SURGEON: Fermín Issa MD CENTRAL OFFICE INSTALLER: JORGE LUIS Linder, whos assistance was necessary for positioning, retraction, help with instrumentation, and closure. ANESTHESIOLOGIST: Dr. Atkins PREOPERATIVE DIAGNOSIS: Right foot infection with 2nd toe and metatarsal osteomyelitis. Right gastrocnemius contracture. POSTOPERATIVE DIAGNOSIS: Right foot infection with 2nd toe and metatarsal osteomyelitis. Right gastrocnemius contracture. OPERATION: 1. Right gastrocnemius recession 2. Right foot irrigation and debridement 3. Right 2nd toe amputation 4. Excision of right distal 2nd metatarsal ANESTHESIA: General IMPLANTS: None TOURNIQUET TIME: Less than 1 hour with a well-padded thigh tourniquet at 250mmHg SPECIMENS: Toe and metatarsal to pathology. Culture swabs to microbiology. ESTIMATED BLOOD LOSS: 50cc COMPLICATIONS: none STATUS: Stable from the operating room to the recovery room and then back to the hospital floor. INDICATIONS FOR PROCEDURE: Flaco has peripheral neuropathy and developed a worsening foot infection. Both operative and non-operative treatment alternatives were reviewed. Further, the nature and risks of surgery were reviewed in careful detail. Our discussions regarding the risks of surgery included, but were not limited to, persistent or worsening infection, wound problems, nerve injury, neuroma, RSD, persistent symptoms, blood clot, need for further surgery or amputation, failure of the surgery, and even the remote chance of catastrophic complication. DESCRIPTION OF PROCEDURE: The patient was seen in the preoperative holding unit and informed written consent was obtained. The appropriate extremity was marked. The patient was then brought to the operating room and carefully positioned on the operating room table. Anesthesia was induced. All bony prominences were padded with great care. A well-padded thigh tourniquet was placed. A chlorhexidine based pre- scrub was performed followed by a chloraprep prep and drape in standard sterile fashion. A surgical safety pause was then conducted in which we confirmed the appropriate patient, extremity, planned procedure, availability of equipment, indication and administration of prophylactic antibiotics, and DVT prophylaxis in the form of a compression boot on the non-surgical extremity. I began with an Esmarch exsanguination, the limb, excluding the foot, and inflated the tourniquet. I then made an approximately 3-cm incision at the posteromedial calf. I carried the dissection through the soft tissue and divided the crural fascia longitudinally. I then exposed the fascia of the gastrocnemius muscle. Great care was taken to protect the sural nerve throughout this procedure. I cleared all adhesions from the posterior aspect of the gastrocnemius fascia and then transected this in its entirety from medially to laterally. I then identified the plantaris tendon, which was also tight medially. This was transected. These procedures had the effect of improving the ankle dorsiflexion to approximately 10 degrees. I then again confirmed that the sural nerve was in continuity. We irrigated copiously. We then used #3-0 Monocryl for the subdermal layer and antelmo for the skin. I then turned my attention to the foot. I made a longitudinal incision overlying the second metatarsal and a circular incision around the second toe. I then used sharp dissection to amputate the second toe at the level of the second MTP joint. This was sent to pathology. I then dissected proximally to expose the second metatarsal. A small oscillating saw blade was used to osteotomize the metatarsal about a third of the way down the shaft. The distal aspect of metatarsal was then skeletonized and excised. This was also sent to pathology. Deep culture swabs were then taken, and sent to microbiology. I then proceeded with a thorough irrigation and debridement of the wound and the foot. All infected and nonviable tissue was sharply excised with a 15 blade scalpel. This included the skin, subcutaneous, muscular, periosteal, and bone layers. After all grossly infected tissue was excised, the wound was copiously irrigated with sterile saline and cystoscopy tubing. I then closed the proximal aspect of the incision in a layered fashion, utilizing #1 PDS, 3-0 Monocryl, and 3-0 nylon. At the distal aspect of the incision, this could not be closed primarily, so the wound was packed with a Betadine wet to dry dressing. The wound measures 2 cm in length by 2 cm in width by 2 cm in depth. A sterile dressing was then applied. The patient was then awakened from anesthesia and transferred to the recovery room in stable condition. There were no complications. All needle and sponge counts were correct at the end of the case. ATTESTATION: I attest I was present and scrubbed and performed the critical portions of the procedure myself. POSTOPERATIVE PLAN: He will continue on antibiotics as guided by the infectious disease service. He will get daily Betadine wet to dry wound packing. He'll be readmitted to the hospital floor.
[2019-01-30] MEDS ORDERED: NS 0.9% 1000 ML** 1,000 ML IV SCH (16:45)
[2019-01-30] MEDS ORDERED: ZOSYN 3.375 GM IVPB SCH ×2 (23:00)
[2019-01-31] MEDS: Acetaminophen TAB* 325 MG PO PRN (07:47)
[2019-01-31] MEDS: ZOSYN 3.375 GM IVPB SCH ×6 (07:47→23:15)
[2019-01-31] MEDS: Atorvastatin* 40 MG TAB PO SCH (08:38)
[2019-01-31] MEDS: Cetirizine* 10 MG TAB PO SCH (08:38)
[2019-01-31] MEDS: Potassium Chlor TAB* 20 MEQ TAB.ER PO SCH ×2 (08:38→21:19)
[2019-01-31] MEDS: Triamterene/HCTZ 37.5-25 MG* CAP PO SCH (08:38)
[2019-01-31] MEDS: Heparin VIAL(*) 5000 UNITS/ML VIAL (FIVE THOUSAND) SUBCUT SCH ×2 (08:38→17:21)
--- NOTE | 2019-01-31 13:17 | PN ---
Progress Note - Progress Note Date of Service: 01/31/19 SOAP: Subjective: []Patient seen at bedside, denies significant foot pain. Denies dizziness, CP, palpitations, nausea fever or chills. Objective: [] Vital Signs Temp 97.5 F 01/31/19 11:33 Pulse 64 01/31/19 11:33 Resp 14 01/31/19 11:33 BP 128/64 01/31/19 11:33 Pulse Ox 94 01/31/19 11:33 Intake & Output 01/30/19 01/31/19 01/31/19 18:59 06:59 18:59 Intake Total 4317 1175 290 Output Total 675 500 Balance 3642 675 290 Intake: IV Fluids 2917 50 85 ABX - PIPERACILLIN 100 LR 2658 NS (0.9%) 159 50 85 IVPB 105 205 ABX - PIPERACILLIN 105 205 Oral 1400 1020 Output: Urine 675 500 Other: Estimated Void Medium # Bowel Movements 0 Estimated Blood Loss MINIMAL Comment # Voids 2 Microbiology 01/30/19 13:42 Anaerobic Culture - Preliminary Wound No Growth Day 1 Acid Fast Bacilli Smear - Final 01/30/19 13:42 Skin and Soft Tissue MRSA/MSSA (PCR - Final Toe Mrsa Negative S.aureus Positive Gram Stain - Final Wound Culture - Preliminary No Growth Day 1 Dressings removed right foot, moderate bloody drainage on 4x4s and ABDs, no purulent drainage , no odor packing from second ray removed without difficulty re packed lightly with a betadine soaked gauze, multiple 4x4s, ABDs, kerlex and DELMI calf NT and soft, lateral leg incision benign, no drainage Assessment: []1. Right gastrocnemius recession 2. Right foot irrigation and debridement 3. Right 2nd toe amputation 4. Excision of right distal 2nd metatarsal Plan: []Dressing change with betadine soaked gauze as above daily WBAT on heel right foot Zosyn PIC line this afternoon Home care needs to be set up for dressing changes w IV abx approval- likely Sunday discharge
--- NOTE | 2019-01-31 16:10 | PN ---
Progress Note - Progress Note Date of Service: 01/31/19 SOAP: Subjective: CC: foot infection HPI: 68 year old man with neuropathy and right foot infection with worsening redness and swelling and s/p amputation of 2nd toe and metatarsal head. Today he has no fever, rash, or diarrhea. Objective: Vital Signs Temp 36.6 C 01/31/19 15:40 Pulse 61 01/31/19 15:40 Resp 15 01/31/19 15:40 BP 129/73 01/31/19 15:40 Pulse Ox 94 01/31/19 15:40 Intake & Output 01/30/19 01/31/19 01/31/19 18:59 06:59 18:59 Intake Total 4317 1175 410 Output Total 675 500 300 Balance 3642 675 110 Intake: IV Fluids 2917 50 85 ABX - PIPERACILLIN 100 LR 2658 NS (0.9%) 159 50 85 IVPB 105 205 ABX - PIPERACILLIN 105 205 Oral 1400 1020 120 Output: Urine 675 500 300 Other: Estimated Void Medium # Bowel Movements 0 Estimated Blood Loss MINIMAL Comment # Voids 2 Gen:awake, no distress HEENT: no thrush Heart:RRR no murmur Lungs:CTA BL Abd:+BS NTND soft Skin: no rash MSK: Right foot wrapped Microbiology 01/30/19 13:42 Anaerobic Culture - Preliminary Wound No Growth Day 1 Acid Fast Bacilli Smear - Final 01/30/19 13:42 Skin and Soft Tissue MRSA/MSSA (PCR - Final Toe Mrsa Negative S.aureus Positive Gram Stain - Final Wound Culture - Preliminary No Growth Day 1 Assessment: 1. acute osteomyelitis and cellulitis right foot s/p 2nd toe and metarsal head amputation, culture no growth on zosyn. 2. peripheral neuropathy, non diabetic Plan: 1. continue zosyn here and ancef 6 gm continuous infusion for home with weekly cbc, cmp, crp (ordered), PICC pending. 35 minutes floor time >50% face to face in counseling with patient, , and daughter regarding antibiotic treatments and side effects. They will call if fever, rash, or diarrhea.
[2019-02-01] MEDS: Heparin VIAL(*) 5000 UNITS/ML VIAL (FIVE THOUSAND) SUBCUT SCH ×3 (02:56→17:38)
[2019-02-01] MEDS: Cetirizine* 10 MG TAB PO SCH (08:01)
[2019-02-01] MEDS: Atorvastatin* 40 MG TAB PO SCH (08:01)
[2019-02-01] MEDS: Potassium Chlor TAB* 20 MEQ TAB.ER PO SCH ×2 (08:01→20:04)
[2019-02-01] MEDS: Triamterene/HCTZ 37.5-25 MG* CAP PO SCH (08:01)
[2019-02-01] MEDS: ZOSYN 3.375 GM IVPB SCH ×6 (08:02→23:28)
--- NOTE | 2019-02-01 10:16 | PN ---
Progress Note - Progress Note Date of Service: 02/01/19 SOAP: Subjective: No pain. Feels well. Objective: Temp Pulse Resp BP Pulse Ox 97.8 F 58 20 144/82 93 02/01/19 07:59 02/01/19 07:59 02/01/19 08:00 02/01/19 07:59 02/01/19 08:00 NAD Right foot dressing changed. Swelling and erythema improved. No TTP. Wound bed without purulence. Wound repacked with betadine W2D. Assessment: Foot improving POD2 Plan: RLE heel WB ABx per ID Daily betadine wet to dry packing dressing Likely d/c Sunday DVT prophylaxis with SCD and SQH in house, Aspirin on d/c Fermín Issa MD
[2019-02-02] MEDS: Heparin VIAL(*) 5000 UNITS/ML VIAL (FIVE THOUSAND) SUBCUT SCH ×4 (04:23→23:34)
[2019-02-02] MEDS: ZOSYN 3.375 GM IVPB SCH ×6 (07:47→23:33)
[2019-02-02] MEDS: Triamterene/HCTZ 37.5-25 MG* CAP PO SCH (07:50)
[2019-02-02] MEDS: Atorvastatin* 40 MG TAB PO SCH (07:50)
[2019-02-02] MEDS: Cetirizine* 10 MG TAB PO SCH (07:50)
[2019-02-02] MEDS: Potassium Chlor TAB* 20 MEQ TAB.ER PO SCH ×2 (07:50→20:14)
--- NOTE | 2019-02-02 09:49 | PN ---
Progress Note - Progress Note Date of Service: 02/02/19 SOAP: Subjective: Subjective: Pt was seen in bed today. No pain. Feeling well, slept well overnight. Objective: Vital Signs Temp 98.4 F 02/02/19 07:14 Pulse 52 02/02/19 07:14 Resp 16 02/02/19 07:57 BP 133/83 02/02/19 07:14 Pulse Ox 97 02/02/19 07:57 Intake & Output 02/01/19 02/02/19 02/02/19 18:59 06:59 18:59 Intake Total 930 1566 Output Total 400 Balance 530 1566 Intake: IVPB 116 ABX - PIPERACILLIN 116 Oral 930 1450 Output: Urine 400 Other: Estimated Void Medium Medium Medium # Voids 1 3 1 General: Pt is alert and oriented x3. NAD. MSK, RLE: Dressing changed today. Betadine packing into wound followed by dry. No drainage from wound. Remaining toes look well. Assessment: Foot improving POD3 Plan: RLE heel WB, boot when up ABx per ID Daily betadine wet to dry packing dressing Likely d/c Sunday DVT prophylaxis with SCD and SQH in house, Aspirin on d/c
[2019-02-03] MEDS: ZOSYN 3.375 GM IVPB SCH ×4 (07:34→15:50)
--- NOTE | 2019-02-03 07:53 | DS ---
Orthopedic Discharge Summary - Discharge Summary Date of Admission:01/27/19 Date of Discharge: [02/03/19] Date of Surgery: [01/30/19] Attending Orthopedic Provider: [Dr Issa] Pre-operative Diagnosis: [Right foot infection] Operative Procedure: 1. Right gastrocnemius recession 2. Right foot irrigation and debridement 3. Right 2nd toe amputation 4. Excision of right distal 2nd metatarsal Disposition of Patient: [home] Condition of Patient: [stable] History and Hospital Course: JUANITA FINE is a 68 year old M with a right foot infection. He present to [facility] on 01/27/19 and brought to the OR 01/30/19. Patient underwent a [Right gastrocnemius recession, Right foot irrigation and debridement, Right 2nd toe amputation and Excision of right distal 2nd metatarsal] without complication followed by a brief recovery in PACU and transfer to the Short Stay Surgical Unit in stable condition. Our infectious disease service, physical therapy and occupational therapy also participated in this patients care. Throughout his stay patient was alert and in no acute distress. Dressing was clean, dry and intact. He received daily dressing changes of betadine wet to dry packing, Wound bed remained clean without purulence. Day of discharge 02/04 he was well appearing in NAD. He denied fever, chills, CP, SOB, dizziness, nausea or foot pain. Dressing was changed. Wound bed was clean with granulation tissue and no purulence. Incision on dorsum of foot and calf were CDI without erythema. He has tolerated 2 doses of ancef and will transition to home continuous infusion today. [place] teaching is complete. Deemed to be stable for discharge home with daily VNS for wound care and [place] for infusion management. Home Medications Medication Instructions Recorded Confirmed Type Potassium Chloride Microencaps 20 meq PO BID 08/22/13 01/27/19 History [Klor-Con M20] Atorvastatin* [Lipitor 10 MG*] 40 mg PO 1700 12/20/18 01/27/19 History LoraTADine TAB(NF) [Claritin 10 MG 10 mg PO DAILY 01/27/19 01/27/19 History TAB(NF)] Acetaminophen TAB* [Tylenol TAB*] 975 mg PO Q8H PRN tab 02/03/19 Rx Aspirin TAB* [Aspirin 325 MG TAB*] 325 mg PO DAILY #30 tab 07/15/19 Rx Docusate CAP* [Colace Cap*] 100 mg PO BID PRN #90 cap 02/03/19 Rx Heel weight bearing right lower extremity in boot. Keep dressing clean, dry and intact aside from daily dressing changes Daily betadine wet to dry packing into surgical wound by home nursing Aspirin 325 mg daily during period of decreased mobility Use tylenol or ibuprofen over the counter for pain control. Call orthopedics for any increased pain, redness, swelling, discharge, fever or chills. Go to the emergency room for chest pain or shortness of breath. Follow up with Dr Issa next week, call for appointment. Call sooner with any questions or concerns ) Ancef 6g continuous daily infusion per infectious disease Follow up with infectious disease within 2 weeks
--- NOTE | 2019-02-03 08:49 | PN ---
Progress Note - Progress Note Date of Service: 02/03/19 SOAP: Subjective: CC: Right foot infection HPI: Mr. Warren is a 68 yo male with PMH significant for sleep apnea, HTN and umbilical hernia. Presented to the hospital for right 2nd toe osteomyelitis. Denies fever, chills, nausea, vomiting, diarrhea, and pain in the right foot. Objective: Vital Signs - 8 hr 02/03/19 02/03/19 03:32 07:32 Temperature 98.1 F 97.4 F Pulse Rate 56 54 Respiratory 16 16 Rate Blood Pressure 143/83 137/80 (mmHg) O2 Sat by Pulse 96 95 Oximetry Physical Exam: General: NAD, sitting up in bed Neurological: Alert and Oriented x4 HEENT: Moist MM, no thrush Cardiovascular: Heart rate regular, no murmur Respiratory: Lung sounds clear Abdominal: Bowel sounds present, ABD soft, non tender and non distended Skin: DELMI wrap dressing to the right LE Laboratory Last Values WBC 6.2 10^3/uL (3.5-10.8) 01/30/19 05:45 RBC 5.15 10^6 /uL (4.18-5.48) 01/30/19 05:45 Hgb 14.8 g/dL (14.0-18.0) 01/30/19 05:45 Hct 43 % (42-52) 01/30/19 05:45 MCV 84 fL (80-94) 01/30/19 05:45 MCH 29 pg (27-31) 01/30/19 05:45 MCHC 34 g/dL (31-36) 01/30/19 05:45 RDW 14 % (10-15) 01/30/19 05:45 Plt Count 223 10^3/uL (150-450) 01/30/19 05:45 MPV 6.2 fL (7.4-10.4) L 01/30/19 05:45 Neut % (Auto) 71.2 % 01/30/19 05:45 Lymph % (Auto) 17.5 % 01/30/19 05:45 Falls % (Auto) 6.5 % 01/30/19 05:45 Eos % (Auto) 4.2 % 01/30/19 05:45 Baso % (Auto) 0.6 % 01/30/19 05:45 Absolute Neuts (auto) 4.4 10^3/ul (1.5-7.7) 01/30/19 05:45 Absolute Lymphs (auto) 1.1 10^3/ul (1.0-4.8) 01/30/19 05:45 Absolute Monos (auto) 0.4 10^3/ul (0-0.8) 01/30/19 05:45 Absolute Eos (auto) 0.3 10^3/ul (0-0.6) 01/30/19 05:45 Absolute Basos (auto) 0.0 10^3/ul (0-0.2) 01/30/19 05:45 Absolute Nucleated RBC 0.0 10^3/ul 01/30/19 05:45 Nucleated RBC % 0.0 01/30/19 05:45 INR (Anticoag Therapy) 1.03 (0.82-1.09) 01/30/19 05:45 Sodium 139 mmol/L (135-145) 01/30/19 05:45 Potassium 3.6 mmol/L (3.5-5.0) 01/30/19 05:45 Chloride 110 mmol/L (101-111) 01/30/19 05:45 Carbon Dioxide 20 mmol/L (22-32) L 01/30/19 05:45 Anion Gap 9 mmol/L (2-11) 01/30/19 05:45 BUN 15 mg/dL (6-24) 01/30/19 05:45 Creatinine 1.01 mg/dL (0.67-1.17) 01/30/19 05:45 Est GFR ( Amer) 88.6 (>60) 01/30/19 05:45 Est GFR (Non-Af Amer) 73.2 (>60) 01/30/19 05:45 BUN/Creatinine Ratio 14.9 (8-20) 01/30/19 05:45 Glucose 98 mg/dL (70-100) 01/30/19 05:45 Calcium 9.5 mg/dL (8.6-10.3) 01/30/19 05:45 C-Reactive Protein 29.64 mg/L (<8.01) H 01/27/19 14:15 Microbiology 01/30/19 13:42 Anaerobic Culture - Preliminary Wound No Growth Day 3 Acid Fast Bacilli Smear - Final 01/30/19 13:42 Skin and Soft Tissue MRSA/MSSA (PCR - Final Toe Mrsa Negative S.aureus Positive Gram Stain - Final Wound Culture - Preliminary No Growth Day 3 Assessment: 1. Acute osteomyelitis and cellulitis right foot. 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 2. Peripheral neuropathy, non diabetic. Plan: Continue Zosyn while here, day . Change to Ancef 6 gm continuous infusion for home with weekly cbc, cmp, crp (ordered). PICC has been placed. Followup with ID outpatient in 1-2 weeks.
[2019-02-03] MEDS: Cetirizine* 10 MG TAB PO SCH (09:20)
[2019-02-03] MEDS: Triamterene/HCTZ 37.5-25 MG* CAP PO SCH (09:21)
[2019-02-03] MEDS: Atorvastatin* 40 MG TAB PO SCH (09:21)
[2019-02-03] MEDS: Heparin VIAL(*) 5000 UNITS/ML VIAL (FIVE THOUSAND) SUBCUT SCH ×2 (09:22→17:45)
[2019-02-03] MEDS: Potassium Chlor TAB* 20 MEQ TAB.ER PO SCH ×2 (09:22→18:05)
--- NOTE | 2019-02-03 16:04 | PN ---
Progress Note - Progress Note Date of Service: 02/03/19 SOAP: Subjective: []Pt seen at bedside. He feels well and desires DC home. Denies fever, chills, CP, SOB, dizziness, nausea. Objective: []General: NAD, appears well MSK, RLE: Dressing changed today. Betadine packing into wound, 4x4s, kerlix and hadley. Wound bed with granulation tissue, no purulence, no maceration surrounding the wound. Cap refill less than two seconds distally. Assessment: SP 1. Right gastrocnemius recession 2. Right foot irrigation and debridement 3. Right 2nd toe amputation 4. Excision of right distal 2nd metatarsal Plan: RLE heel WB, boot when up ABx per ID: will transition to ancef tonight as patient much have a dose prior to discharge. Awaiting ins approval briova infusions but anticipate DC early tomorrow morning. Daily betadine wet to dry packing dressing DVT prophylaxis with SCD and SQH in house, Aspirin on d/c Vital Signs Temp 98.5 F 02/03/19 11:43 Pulse 62 02/03/19 11:43 Resp 16 02/03/19 11:43 BP 141/87 02/03/19 11:43 Pulse Ox 95 02/03/19 11:43 Intake & Output 02/02/19 02/03/19 02/03/19 18:59 06:59 18:59 Intake Total 480 1030 469 Output Total 500 700 0 Balance -20 330 469 Intake: IV Fluids 109 ABX - PIPERACILLIN 109 Oral 480 1030 360 Output: Urine 500 700 0 Other: Estimated Void Medium # Bowel Movements 0 0 0 # Voids 1
[2019-02-03] MEDS: ceFAZolin VIAL(*) 2 GM in NS 0.9% 100 ML* 100 ML IVPB SCH (23:11)
[2019-02-04] MEDS: Heparin VIAL(*) 5000 UNITS/ML VIAL (FIVE THOUSAND) SUBCUT SCH ×2 (01:24→07:36)
[2019-02-04] MEDS: ceFAZolin VIAL(*) 2 GM in NS 0.9% 100 ML* 100 ML IVPB SCH (07:03)
[2019-02-04] MEDS: Atorvastatin* 40 MG TAB PO SCH (07:35)
[2019-02-04] MEDS: Triamterene/HCTZ 37.5-25 MG* CAP PO SCH (07:35)
[2019-02-04] MEDS: Potassium Chlor TAB* 20 MEQ TAB.ER PO SCH (07:35)
[2019-02-04] MEDS: Cetirizine* 10 MG TAB PO SCH (07:36)
[2019-02-04 07:47] VITALS: BP 142/84
== END 2019-02-04 10:34 | disposition home health service (06) | DRG 501 ==
LOC: SSU 13:23
PROVIDERS: ADMIT Orthopaedic Surgery; ATTEND Orthopaedic Surgery
PROC: 0QBN0ZZ Excision of Right Metatarsal, Open Approach (ICD-10-PCS; 2019-01-30)
PROC: 0K8 Muscles, Division (ICD-10-PCS; principal; 2019-01-30 11:45)
PROC: 0Y6R0Z0 Detachment at Right 2nd Toe, Complete, Open Approach (ICD-10-PCS; 2019-01-30 11:45)
PROC: 05HY33Z Insertion of Infusion Device into Upper Vein, Percutaneous Approach (ICD-10-PCS; 2019-01-31)
DX: M86.171 Other acute osteomyelitis, right ankle and foot (principal); L03.115 Cellulitis of right lower limb; G62.9 Polyneuropathy, unspecified; M24.4 Recurrent dislocation of joint; L03.031 Cellulitis of right toe; I10 Essential (primary) hypertension; L97.519 Non-pressure chronic ulcer of other part of right foot with unspecified severity; M62.461 Contracture of muscle, right lower leg; M16.10 Unilateral primary osteoarthritis, unspecified hip; M76.00 Gluteal tendinitis, unspecified hip; G47.30 Sleep apnea, unspecified; K42.9 Umbilical hernia without obstruction or gangrene; Z79.899 Other long term (current) drug therapy; Z88.8 Allergy status to other drugs, medicaments and biological substances; Z83.2 Family history of diseases of the blood and blood-forming organs and certain disorders involving the immune mechanism; Z80.8 Family history of malignant neoplasm of other organs or systems; Z87.891 Personal history of nicotine dependence; Z82.3 Family history of stroke; Z82.49 Family history of ischemic heart disease and other diseases of the circulatory system
CPT/HCPCS: 36415; 80048; 85025; 85610; 86140; 87070; 87073; 87116; 87205; 87206; 87640; 87641; 88305; 88311; 93922; A9270-GY; C1751; G8978-GP-CI; G8979-GP-CI; G8980-GP-CI; J0690; J1200; J1644; J2250; J2405; J2543; J2704; J2765; J3010